=== PATIENT | female | born 1955 | race Asian ===

== ENCOUNTER 2021-02-22 05:17 | Emergency (ER) | payer OTHER ==
[~2021-02-22] VITALS: Ht 157.5 cm; Wt 59.9 kg
[2021-02-22 05:17] VITALS: BP 130/80
--- NOTE | 2021-02-22 05:17 | NUR ---
TO [facility] AMBUL[facility]ORY
--- NOTE | 2021-02-22 05:24 | NUR ---
SWAB FOR NOVEL SENT TO LAB
[2021-02-22 05:30] VITALS: BP 130/80
--- NOTE | 2021-02-22 05:30 | NUR ---
Patient discharged with v/s stable. Written and verbal after care instructions given and explained. Patient verbalized understanding. Ambulatory with steady gait. All questions addressed prior to discharge. Advised to follow up with PMD.
== END 2021-02-22 05:30 | disposition home or self-care (01) ==
LOC: MED 05:17
DX: Z11.52 Encounter for screening for COVID-19 (principal); Z20.822 Contact with and (suspected) exposure to COVID-19
CPT/HCPCS: 99283; U0003

== ENCOUNTER 2021-08-20 18:49 | Emergency (ER) | payer OTHER ==
[~2021-08-20] VITALS: Ht 154.9 cm; Wt 59.9 kg
[2021-08-20 18:50] VITALS: BP 128/97
== END 2021-08-20 19:10 | disposition home or self-care (01) ==
LOC: MED 18:49
DX: Z01.84 Encounter for antibody response examination (principal); Z20.822 Contact with and (suspected) exposure to COVID-19; Z98.890 Other specified postprocedural states
CPT/HCPCS: 87426; 87635; 99283; C9803

== ENCOUNTER 2023-11-16 05:10 | Emergency (ER) | payer OTHER ==
[~2023-11-16] VITALS: Ht 154.9 cm; Wt 59.9 kg
[2023-11-16 05:17] VITALS: BP 163/85; PULSE 95; RESP 20; TEMP 97.9; O2SAT 96
[2023-11-16 07:35] LABS: BASOPHILS # (AUTO) 0.1 K/uL (0.00-0.22); EOSINOPHILS # (AUTO) 0.1 K/uL (0-0.4); HEMATOCRIT 38.5 % (36-48); HEMOGLOBIN 12.9 g/dL (12.0-16.0); LYMPHOCYTES # (AUTO) 1.7 K/uL (2.5-16.5); LYMPHOCYTES % (AUTO) 29.5 % (20.5-51.1); MEAN CORPUSCULAR HEMOGLOBIN 32 pg (27-31); MEAN CORPUSCULAR HGB CONC 34 g/dL (33-37); MONOCYTES # (AUTO) 0.4 K/uL (0.8-1.0); MONOCYTES % (AUTO) 7.9 % (1.7-9.3); NEUTROPHILS # (AUTO) 3.4 K/uL (1.8-7.7); NEUTROPHILS % (AUTO) 60.6 % (42.2-75.2); PLATELET COUNT (AUTO) 207 K/uL (140-450); RED BLOOD CELL COUNT(AUTO) 4.05 MIL/uL (4.20-5.40); RED CELL DISTRIBUTION WIDTH 13.5 % (11.6-13.7); WHITE BLOOD COUNT (AUTO) 5.6 K/uL (4.8-10.8)
[2023-11-16 08:06] LABS: ANION GAP 10.1 (8-16); CALCIUM 8.9 mg/dL (8.5-10.1); CARBON DIOXIDE 27.5 mmol/L (21-32); CREATININE 0.9 mg/dL (0.6-1.3); POTASSIUM 3.6 mmol/L (3.5-5.1)
[2023-11-16 08:16] LABS: ALANINE AMINOTRANSFERASE 27 U/L (12-78); ALBUMIN 3.6 g/dL (3.4-5.0); ALKALINE PHOSPHATASE 69 U/L (50-136); ASPARTATE AMINOTRANSFERASE 14 U/L (15-37); BILIRUBIN,DIRECT 0.1 mg/dL (0.0-0.3); TOTAL BILIRUBIN 0.4 mg/dL (0.0-1.0); TOTAL PROTEIN, SERUM 6.8 g/dL (6.4-8.2)
[2023-11-16] MEDS ORDERED: ATA25 PO (08:48)
[2023-11-16] MEDS ORDERED: OMEP40EC23 PO (08:48)
[2023-11-16 08:56] VITALS: BP 143/86; PULSE 76; RESP 20; TEMP 98.3; O2SAT 99
== END 2023-11-16 08:56 | disposition home or self-care (01) ==
LOC: MED 05:10
DX: R00.2 Palpitations (principal); F41.9 Anxiety disorder, unspecified; F43.9 Reaction to severe stress, unspecified; R03.0 Elevated blood-pressure reading, without diagnosis of hypertension; Z79.899 Other long term (current) drug therapy
CPT/HCPCS: 36415; 71045; 80048; 80076; 83880; 84484; 85025; 85379; 93005; 99285; Q0092

== ENCOUNTER 2023-11-23 13:21 | Outpatient (CLI) | payer OTHER ==
[~2023-11-23 13:21] MED LIST: ATA25 PO; OMEP40EC23 PO
[2023-11-23 14:44] LABS: ANION GAP 15.3 (8-16); CARBON DIOXIDE 23.1 mmol/L (21-32); CHOL/HDL RATIO 4.7 (1-4.5); CREATININE 0.7 mg/dL (0.6-1.3); POTASSIUM 3.4 mmol/L (3.5-5.1); TOTAL BILIRUBIN 0.7 mg/dL (0.0-1.0); TOTAL PROTEIN, SERUM 7.3 g/dL (6.4-8.2)
== END 2023-11-23 21:51 | disposition home or self-care (01) ==
LOC: MLB 13:21
PROVIDERS: ATTEND Internal Medicine
DX: E11.9 Type 2 diabetes mellitus without complications (principal); E78.5 Hyperlipidemia, unspecified
CPT/HCPCS: 36415; 80053; 83036